=== PATIENT | female | born 1950 | race Caucasian/White ===

== ENCOUNTER 2017-11-30 09:37 | Outpatient (CLI) | payer OTHER | END 2017-11-30 10:29 | disposition home or self-care (01) | LOC: SONOGRAMA 09:37 | DX: E03.8 Other specified hypothyroidism (principal); E55.9 Vitamin D deficiency, unspecified; M32.9 Systemic lupus erythematosus, unspecified; E66.9 Obesity, unspecified; G89.4 Chronic pain syndrome ==

== ENCOUNTER 2017-11-30 09:39 | Outpatient (CLI) | payer OTHER | END 2017-11-30 10:27 | disposition home or self-care (01) | LOC: RAD 09:39 | DX: M79.672 Pain in left foot (principal) ==

== ENCOUNTER 2018-02-26 08:44 | Outpatient (CLI) | payer OTHER | END 2018-02-26 08:52 | disposition home or self-care (01) | LOC: SONOGRAMA 08:44 | DX: R59.0 Localized enlarged lymph nodes (principal) ==

== ENCOUNTER 2018-05-21 07:52 | Outpatient (CLI) | payer OTHER | END 2018-05-21 08:34 | disposition home or self-care (01) | LOC: RAD 07:52 → LAB 07:52 → RAD 08:34 | DX: D64.89 Other specified anemias (principal); D68.8 Other specified coagulation defects; N39.0 Urinary tract infection, site not specified; R82.8 Abnormal findings on cytological and histological examination of urine; E11.9 Type 2 diabetes mellitus without complications; E55.9 Vitamin D deficiency, unspecified; E03.8 Other specified hypothyroidism; Z22.322 Carrier or suspected carrier of Methicillin resistant Staphylococcus aureus; E88.89 Other specified metabolic disorders; E83.42 Hypomagnesemia; I49.8 Other specified cardiac arrhythmias; Z76.89 Persons encountering health services in other specified circumstances ==

== ENCOUNTER 2018-09-25 10:22 | Outpatient (CLI) | payer OTHER | END 2018-09-25 10:53 | disposition home or self-care (01) | LOC: RAD 10:22 | DX: M25.572 Pain in left ankle and joints of left foot (principal) ==

== ENCOUNTER 2023-10-31 11:38 | Outpatient (CLI) | payer OTHER | END 2023-10-31 13:42 | disposition home or self-care (01) | LOC: RAD 11:38 | PROVIDERS: ATTEND Family Medicine | DX: J20.9 Acute bronchitis, unspecified (principal); Z88.8 Allergy status to other drugs, medicaments and biological substances ==